=== PATIENT | male | born 1970 | race Caucasian/White ===

== ENCOUNTER 2017-07-11 16:53 | Emergency (ER) | payer BC ==
[2017-07-11 17:23] VITALS: BP 122/88
--- NOTE | 2017-07-11 18:08 | UC ---
Hand/Wrist HPI - HPI Summary HPI Summary: Pt is RHD. Pt was doing a project yesterday, screwdriver slipped and cut palmar surface of left hand. Pt states little discomfort at the time. Pt cleaned with soap and water, applied abx ointmet and bandage. Pt state today was typing a lot at work and had increased discomfort and mild swelling. Pt denies hand weakness. No drainage. No fever, chills. No reddness. Not immunocompromised. tdap UTD no analgesia taken Pt's medications reviewed this visit - History Of Current Complaint Chief Complaint: UCSkin Stated Complaint: RT HAND PUNCTURE WOUND Time Seen by Provider: 07/11/17 17:56 Pain Intensity: 0 Pain Scale Used: FLACC (Peds Only) - Allergies/Home Medications Allergies/Adverse Reactions: Allergies Allergy/AdvReac Type Severity Reaction Status Date / Time No Known Allergies Allergy Verified 07/11/17 17:22 PMH/Surg Hx/FS Hx/Imm Hx - Surgical History Surgical History: Yes Surgery Procedure, Year, and Place: vasectomy. appy - Social History Alcohol Use: Occasionally Substance Use Type: None Smoking Status (MU): Never Smoked Tobacco - Immunization History Most Recent Tetanus Shot: 11/10/10 Review of Systems Constitutional: Negative Skin: Other - puncture wound to left hand Eyes: Negative ENT: Negative Respiratory: Negative Cardiovascular: Negative Gastrointestinal: Negative Genitourinary: Negative Motor: Negative Neurovascular: Negative Musculoskeletal: Negative Neurological: Negative Psychological: Negative All Other Systems Reviewed And Are Negative: Yes Physical Exam Triage Information Reviewed: Yes Appearance: Well-Appearing, No Pain Distress, Well-Nourished Vital Signs: Initial Vital Signs Temp 97.7 F 07/11/17 17:17 Pulse 73 07/11/17 17:17 Resp 17 07/11/17 17:17 BP 122/88 07/11/17 17:17 Pulse Ox 100 07/11/17 17:17 Vital Signs Reviewed: Yes Eyes: Positive: Conjunctiva Clear ENT: Positive: Hearing grossly normal Dental Exam: Normal Neck: Positive: Supple, Nontender, No Lymphadenopathy Respiratory: Positive: No respiratory distress, No accessory muscle use Cardiovascular: Positive: Other: - 2+ radial, 2+ ulna CBT<2sec Musculoskeletal Exam: Normal Musculoskeletal: Positive: Other: - + flex/ext wrist + flex/ext MCP, PIP, DIP + flex/ext elbow +pronate/supinate Pt with discomfort palmar aspect along 5th MC no crepitus. no erythema. no drainage Neurological Exam: Normal Neurological: Positive: Alert, Other: - + gross sensation throughout + thumb up , a ok, finger spread, finger cross Psychological Exam: Normal Psychological: Positive: Normal Response To Family Skin: Positive: Other - Pt with small puncture wound left palmar service over 5th MC No erythema, drainage, odor, fluctuance, edema Diagnostics - Radiology No standard instances Radiology Interpretation Completed By: Radiologist - Patient Name: ESPINOZA FLETCHER Medical Record#: [id number] Ordering Physician: May Villela MD Acct. #: [id number] : 1970 Age: 46 Sex: M Location: [facility] [place] Exam Date: 07/11/171814 ADM Status: REG ER Order Information: HAND - LEFT MINIMUM 3 VIEWS Accession Number: [id number] CPT: 54410 INDICATION: Puncture wound COMPARISON: None TECHNIQUE: AP, lateral, and oblique views were obtained. FINDINGS: The bony structures, joint spaces, and soft tissues are normal for age. IMPRESSION: NEGATIVE EXAMINATION. Hand/Wrist Course/Dx - Course Course Of Treatment: pt with puncture wound left palmar aspect non dominant hand. pt with focal tenderness - no concern for infection today's exam. will check imaging for air. splint. wound care. abx. ortho referral. elevate. return precaution - Differential Dx/Diagnosis Provider Diagnoses: puncture wound Discharge - Sign-Out/Discharge Documenting (check all that apply): Discharge/Admit/Transfer - Discharge Plan Condition: Stable Disposition: HOME Prescriptions: Amoxicillin PO (*) [Amoxicillin 875 MG (*)] 875 mg PO BID #14 tab Patient Education Materials: Puncture Wound (ED) Referrals: Felicita Villela MD [Primary Care Provider] - Nicole Hui MD [Medical Doctor] - Additional Instructions: - Take antibiotics as prescribed until gone - It is recommend you soak your wound with warm, wet soak 2 times a day, 20 minutes at a time - pat dry, then cover with antibiotic ointment and bandage - wear splint for support and comfort - this will help with swelling - elevate your hand to help with swelling and pain - Okay to take tylenol every 6 hours as need for discomfort - contact Dr. Hui to schedule a recheck later this week - If you develop increased pain, swelling, reddness, drainage, odor, or ANY other concerns it is recommended you contact Dr. Hui or go to the emergency department - Billing Disposition and Condition Condition: STABLE Disposition: HOME
--- NOTE | 2017-07-11 18:31 | RAD ---
INDICATION: Puncture wound COMPARISON: None TECHNIQUE: AP, lateral, and oblique views were obtained. FINDINGS: The bony structures, joint spaces, and soft tissues are normal for age. IMPRESSION: NEGATIVE EXAMINATION.
== END 2017-07-11 18:51 | disposition home or self-care (01) ==
LOC: UCCORT 16:53
DX: S61.431A Puncture wound without foreign body of right hand, initial encounter (principal); X58.XXXA Exposure to other specified factors, initial encounter; Y92.9 Unspecified place or not applicable
CPT/HCPCS: 99203; G0463